=== PATIENT | male | born 1950 | race Caucasian/White ===

== ENCOUNTER 2019-05-26 12:59 | Inpatient (IN) | payer MEDICARE, MEDICAID ==
[2019-05-26] MEDS ORDERED: Vancomycin 1.5 GRAM/300 ML BAG 1.5 GM in Premix Bag 1 BAG IVPB SCH (14:15)
[2019-05-26 14:46] LABS: CKMB 2.2 ng/mL (0-6.6)
[2019-05-26] MEDS ORDERED: HYDROcodone/Acetaminophen 7.5/325 mg Tablet PO PRN (15:06)
[2019-05-26] MEDS ORDERED: Ondansetron ODT 4 MG TAB PO PRN (15:06)
[2019-05-26] MEDS ORDERED: Bisacodyl 10 MG SUPP PR PRN (15:06)
[2019-05-26] MEDS ORDERED: Ondansetron PF 4 MG/2 ML Vial IVP PRN (15:06)
[2019-05-26] MEDS ORDERED: Loperamide HCl 2 MG CAP PO PRN (15:06)
[2019-05-26] MEDS ORDERED: Benzonatate 100 MG CAP PO PRN (15:09)
[2019-05-26] MEDS ORDERED: Labetalol HCl 100 MG/20 ML VIAL SLOW IVP PRN (15:09)
[2019-05-26] MEDS ORDERED: diphenhydrAMINE 25 MG CAP PO PRN (15:09)
[2019-05-26] MEDS ORDERED: Docusate 100 MG CAP PO PRN (15:09)
[2019-05-26 15:36] LABS: #Basophils 0.1 thou/uL (0.0-0.2); #Eosinphils 0.3 thou/uL (0.0-0.7); #Lymphocytes 0.6 thou/uL (1.20-3.40); #Monocytes 1.3 thou/uL (0.11-0.59); #Neutrophils 12.1 thou/uL (1.40-6.50); %Basophils 0.8 % (0.0-1.0); %Eosinophils 1.9 % (0.0-10.0); %Lymphocytes 4.2 % (21.0-51.0); %Monocytes 9.3 % (0.0-10.0); %Neutrophils 83.9 % (42.0-75.0); Hemoglobin 12.3 g/dL (14.0-18.0); Mean Corpuscular Hemoglobin 32.5 pg (27.0-31.0); Mean Corpuscular Volume 95.6 fL (78.0-98.0); Platelet Count 472 thou/uL (130-400); RBC Distribution Width 12.8 % (11.5-14.5); Red Blood Cell (RBC) Count 3.78 mill/uL (4.70-6.10); White Blood Cell (WBC) Count 14.4 thou/uL (4.8-10.8)
[2019-05-26 15:58] LABS: Anion Gap 19 mmol/L (10-20); BUN (Urea Nitrogen) 58 mg/dL (8.4-25.7); Calc. Creatinine Clearance 0 mL/min (70-130); Calcium 8.4 mg/dL (7.8-10.44); Carbon Dioxide 19 mmol/L (23-31); Chloride 96 mmol/L (98-107); Estimated GFR-MDRD 33; Glucose 108 mg/dL (80-115); Potassium 3.7 mmol/L (3.5-5.1); Sodium 130 mmol/L (136-145)
--- NOTE | 2019-05-26 17:40 | CT ---
CT of the chest, abdomen, and pelvis: 05/26/2019 COMPARISON: None HISTORY: Flank pain, abnormal chest x-ray TECHNIQUE: Axial CT imaging at 5 mm intervals from the thoracic inlet through the pubic symphysis wit hout contrast. Coronal and sagittal reformatted imaging obtained. FINDINGS: Evaluation of the viscera, vascular structures, bowel, and evaluation for lymphadenopathy i s limited without contrast media. There is atherosclerotic calcification involving the coronary arteries, the aortic arch, the proximal great vessels, and the descending thoracic aorta. No pneumothorax is evident on either side. No left-sided pleural effusion. The left lung appears grossly unremarkable. There is a moderate-sized pleural effusion on the right which is slightly lobulated/loculated, sugges ting the possibility of complexity, which may be on the basis of infection or malignancy. There is partial consolidation/collapse of the adjacent right lower lobe. The right upper lobe appears unremar kable. A round mass is suspected with central hypodensity, possibly on the basis of necrosis, involving the posterior lateral aspect of the right middle lobe on axial image 40 measuring 2.3 cm. There is a second soft tissue mass within the right middle lobe laterally on image 39 measuring 1.9 cm. The osseous structures of the chest demonstrate no acute findings. There is a small sclerotic focus w ithin the ninth rib laterally on the right on axial image 57, which could be related to a benign bone island or a small metastatic focus. No free intraperitoneal air. Limited assessment of the liver, gallbladder, spleen, pancreas, adrenal glands, and kidneys appears grossly unremarkable. Evaluation of the upper abdomen is slightly limited secondary to motion. There is a Oconnor catheter within the urinary bladder. Limited assessment of the bowel on the basis of motion and lack of contrast media demonstrates no evidence for obstruction. There is extensive severe atherosclerotic calcification of the abdominal aorta and its b ranches throughout the abdomen/pelvis. There is a small sliding-type hiatal hernia. Osseous structures of the abdomen/pelvis demonstrate an age indeterminant, possibly acute, superior e ndplate fracture of L1 with mild loss of vertebral body height centrally. IMPRESSION: Moderate sized slightly lobulated right pleural effusion which may reflect complexity on the basis of infection or malignancy. Of note, two suspicious masses within the right middle lobe are concerning for possible malignancy. Additional findings as detailed above. Pulmonary consultation and consideration for whole body PET CT advised CODE T
--- NOTE | 2019-05-26 19:40 | ULT ---
Renal ultrasound: 05/26/2019 COMPARISON:None available HISTORY:Acute kidney insufficiency TECHNIQUE: Multiplanar grayscale sonographic imaging of the kidneys and urinary bladder obtained. FINDINGS: The right kidney radrfgod81.8 x 4.9 x 5.3 cm and demonstratesno renal mass, hydronephrosis, or renal stone. The left kidney jzsmkaml05.0 x 5.3 x 5.2 cm and demonstratesno evidence for stone, hydronephrosis, or mass lesion. The urinary bladderis not well assessed, completely decompressed and containing a Oconnor catheter. IMPRESSION:No hydronephrosis.
--- NOTE | 2019-05-26 19:56 | PDOC.HHP ---
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 I find the patient in the emergency department he is sitting up in bed, and mild acute pulmonary distress. Patient is a primary historian though he does not know his past medical history well and is unable to give many details. Patient is able to tell me that he has had a stroke in the past with weakness on the right side of the body and speech impairment, he is an active smoker, Patient denies HTN, HLD, COPD. Patient does not know what medications he takes. Patient tells me he was found on the ground today by his neighbor who called EMS. Patient states he can walk. Patient denies being admitted to the hospital in the past three months. Patient denies being in nursing facility in the past three months. Patient states that he lives at home and takes care of himself. Patient denies fever or chills, he has had a cough though he denies sputum production. Patient with right flank/ rib pain with deep inspiration. Patient denies other sick symptoms denies chest pain, palpitations, syncope, trauma to any limbs her head, or other symptoms. A CT scan of the chest, abdomen, and pelvis was performed and he is found have complex fluid collection versus mass. Pulmonology consultation has been requested for further recommendations. Hospitalist ROS - Review of Systems All other systems reviewed; all pertinent +/- noted in HPI/Subj - Medication Medications: Active Medications Generic Name Dose Route Start Last Admin Trade Name Freq PRN Reason Stop Dose Admin Albuterol/Ipratropium 3 ml 05/26/19 19:00 05/26/19 18:57 Duoneb NEB 3 ml [id number] [facility] Administration Hospitalist History - Past Medical History Source: patient Pulmonary: reports: CVA/TIA/stroke - Past Surgical History Past Surgical History: reports: Other - Social History Smoking Status: Current every day smoker Tobacco Type: chewing tobacco Alcohol: reports: Rare Drugs: reports: none Living Situation: Alone Domestic Violence: Negative Activity level: independent ambulation - Exam General Appearance: NAD, awake alert Eye: PERRL ENT: normocephalic atraumatic, moist mucosa Neck: supple, symmetric, no lymphadenopathy Heart: no murmur, no gallops, no rubs Respiratory: no rales, normal chest expansion, no tachypnea, rhonchi, wheezes Respiratory - other findings: Decreased breath sounds right lower lung Gastrointestinal: soft, non-tender, no guarding, no rigidity Extremities: no edema Skin: no lesions, no rashes Neurological: cranial nerve grossly intact, no new deficit Neurological - other findings: Right sided weakness Musculoskeletal: generalized weakness Psychiatric: oriented to person, oriented to place, flat affect Hospitalist Results - Labs Result Diagrams: 05/26/19 15:24 05/26/19 15:24 Lab results: WBC 14.4 thou/uL (4.8-10.8) H 05/26/19 15:24 Hgb 12.3 g/dL (14.0-18.0) L 05/26/19 15:24 Hct 36.1 % (42.0-52.0) L 05/26/19 15:24 MCV 95.6 fL (78.0-98.0) 05/26/19 15:24 Plt Count 472 thou/uL (130-400) H 05/26/19 15:24 Neutrophils % 83.9 % (42.0-75.0) H 05/26/19 15:24 Sodium 130 mmol/L (136-145) L 05/26/19 15:24 Potassium 3.7 mmol/L (3.5-5.1) 05/26/19 15:24 Chloride 96 mmol/L (98-107) L 05/26/19 15:24 Carbon Dioxide 19 mmol/L (23-31) L 05/26/19 15:24 BUN 58 mg/dL (8.4-25.7) H 05/26/19 15:24 Creatinine 2.01 mg/dL (0.7-1.3) H 05/26/19 15:24 Glucose 108 mg/dL (80-115) 05/26/19 15:24 Lactic Acid 1.0 mmol/L (0.5-2.2) 05/26/19 13:55 Calcium 8.4 mg/dL (7.8-10.44) 05/26/19 15:24 CK-MB (CK-2) 2.2 ng/mL (0-6.6) 05/26/19 13:55 Troponin I 0.137 ng/mL (< 0.028) H 05/26/19 13:55 - Radiology Interpretation CT scan - chest Status: image reviewed by wa Hospitalist H&P A/P - Problem (1) Empyema lung Code(s): J86.9 - PYOTHORAX WITHOUT FISTULA Status: Acute (2) Pneumonia Code(s): J18.9 - PNEUMONIA, UNSPECIFIED ORGANISM Status: Acute (3) Shortness of breath Code(s): R06.02 - SHORTNESS OF BREATH Status: Acute (4) Lung mass Code(s): R91.8 - OTHER NONSPECIFIC ABNORMAL FINDING OF LUNG FIELD Status: Acute (5) CVA, old, cognitive deficits Code(s): I69.319 - UNSP SYMPTOMS AND SIGNS W COGN FNCTNS FOL CEREBRAL INFRC Status: Acute (6) History of CVA with residual deficit Code(s): I69.30 - UNSPECIFIED SEQUELAE OF CEREBRAL INFARCTION Status: Acute (7) Sepsis Code(s): A41.9 - SEPSIS, UNSPECIFIED ORGANISM Status: Acute (8) MAIRA (acute kidney injury) Code(s): N17.9 - ACUTE KIDNEY FAILURE, UNSPECIFIED Status: Acute (9) Leucocytosis Code(s): D72.829 - ELEVATED WHITE BLOOD CELL COUNT, UNSPECIFIED Status: Acute (10) Tachypnea Code(s): R06.82 - TACHYPNEA, NOT ELSEWHERE CLASSIFIED Status: Acute - Plan Plan: Plan: Admit to the intermediate medical care unit pulmonology consultation, recommendations appreciated CT scan of the chest, abdomen, and pelvis noted with possible pulmonary lesion and possible rib lesion with possibility of empyema the patient may require chest tube versus thoracentesis pulmonary specific antibiotics breathing treatment scheduled and as needed supplemental oxygen to maintain O2 saturation greater than 88% Sepsis diagnosed on admission acute kidney injury present on admission renal ultrasound negative for obstructive process IV fluid resuscitation for MAIRA mildly elevated cardiac enzymes likely secondary to impaired renal clearance Trend troponin Q4H, add echocardiogram. Pending above workup consider cardiology consult in the AM blood pressure control blood sugar control G.I. prophylaxis
[2019-05-26] MEDS ORDERED: Azithromycin 500 MG in Sodium Chloride 0.9% 250 ML 250 ML IVPB SCH (20:00)
[2019-05-26 20:57] LABS: Troponin I 0.124 ng/mL (< 0.028)
[2019-05-26] MEDS ORDERED: cefTRIAXone\\ROCEPHIN 2 GM in Sodium Chloride 0.9% 100 ML IVPB SCH (21:00)
[2019-05-26 21:07] VITALS: BMI 20.5
[2019-05-26] MEDS: Famotidine 20 MG TAB PO SCH (23:19)
[2019-05-27] MEDS: Sodium Chloride 0.9% 1,000 ML IV SCH ×2 (00:07→16:24)
[2019-05-27 03:47] LABS: #Basophils 0.1 thou/uL (0.0-0.2); #Eosinphils 0.4 thou/uL (0.0-0.7); #Lymphocytes 0.9 thou/uL (1.20-3.40); #Monocytes 1.5 thou/uL (0.11-0.59); #Neutrophils 11.3 thou/uL (1.40-6.50); %Basophils 0.4 % (0.0-1.0); %Eosinophils 3.1 % (0.0-10.0); %Lymphocytes 6.1 % (21.0-51.0); %Monocytes 10.5 % (0.0-10.0); %Neutrophils 79.9 % (42.0-75.0); Hemoglobin 11.4 g/dL (14.0-18.0); Mean Corpuscular HGB CONC 34.1 g/dL (32.0-36.0); Mean Corpuscular Hemoglobin 32.5 pg (27.0-31.0); Mean Corpuscular Volume 95.4 fL (78.0-98.0); Mean Platelet Volume 6.8 fL (7.4-10.4); Platelet Count 456 thou/uL (130-400); RBC Distribution Width 12.8 % (11.5-14.5); Red Blood Cell (RBC) Count 3.51 mill/uL (4.70-6.10); White Blood Cell (WBC) Count 14.1 thou/uL (4.8-10.8)
[2019-05-27 04:12] LABS: Anion Gap 17 mmol/L (10-20); BUN (Urea Nitrogen) 52 mg/dL (8.4-25.7); Calc. Creatinine Clearance 47 mL/min (70-130); Calcium 8.1 mg/dL (7.8-10.44); Carbon Dioxide 17 mmol/L (23-31); Chloride 98 mmol/L (98-107); Estimated GFR-MDRD 49; Glucose 107 mg/dL (80-115); Potassium 3.3 mmol/L (3.5-5.1); Sodium 129 mmol/L (136-145)
[2019-05-27 06:14] LABS: Bilirubin Negative (Negative); Blood, Urine 3+ (Negative); Clarity Clear (Clear); Glucose, Urine (Dipstick) Normal (Negative); Leukocyte 25 Leu/uL (Negative); Nitrite Negative (Negative); Protein, Urine (Dipstick) 10 mg/dL (Neg-Trace); RBC/HPF Greater than 50 HPF (0-3); Squamous Epithelial None Seen HPF (0-3); Urobilinogen Normal mg/dL (Less than 2); WBC/HPF 21-50 HPF (0-3)
[2019-05-27 06:22] LABS: Bacteria/HPF 1+ HPF (None Seen)
[2019-05-27] MEDS: cefTRIAXone\\ROCEPHIN 2 GM in Sodium Chloride 0.9% 100 ML IVPB SCH (09:23)
[2019-05-27] MEDS: Azithromycin 500 MG in Sodium Chloride 0.9% 250 ML 250 ML IVPB SCH (09:24)
[2019-05-27 16:26] LABS: Fluid, pH - Pleural Fld 7.27 (7.60 - 7.66)
[2019-05-27 17:21] LABS: RBC Count-Automated (BF) 8048 /cumm; WBC/Nucleated-Auto (BF) 10425 uL
[2019-05-27 17:39] LABS: BF Color Yellow; Body Fluid Source Pleural Fluid; Clarity Cloudy/Turbid (Clear); Tube # EDTA
[2019-05-27 19:11] LABS: BF Segmented Neutrophils 50 %; Cell Count Non Hematic 22 %; Eosinophils 12 %; Lymphocytes 14 %
--- NOTE | 2019-05-27 20:38 | CON ---
DATE OF CONSULTATION: HISTORY OF PRESENT ILLNESS: Mr. Bedoya is a 69-year-old gentleman, who was admitted yesterday with complaints of shortness of breath and not feeling well. He has a past history of cerebrovascular accident with right-sided deficit and very significant speech deficits. He is an active smoker. He denied fever at home. As part of his workup, he had a CT scan of his chest which showed a large right pleural effusion. He underwent thoracentesis today with evacuation of 1 L of turbid fluid, pH of which was 7.27. White blood cell count is 14. He has had no fever since admission. I have been asked to see him for further treatment and recommendations in regard to right empyema. PAST MEDICAL HISTORY: 1. Status post cerebrovascular accident. 2. Tobacco abuse. PAST SURGICAL HISTORY: None. CURRENT MEDICATIONS: Noted. ALLERGIES: NONE. SOCIAL HISTORY: He smokes about a pack of cigarettes a day. He does chew tobacco. REVIEW OF SYSTEMS: Negative except as above. PHYSICAL EXAMINATION: GENERAL: This is a thin, almost debilitated appearing gentleman. He is eating dinner currently. LUNGS: Have rhonchi on the right. HEART: Rhythm is regular. ABDOMEN: Soft and nontender. EXTREMITIES: No edema. I reviewed his CT scan. IMPRESSION: Right-sided empyema for thoracoscopy and drainage. He is already on ceftriaxone and azithromycin Job ID: [id number]
[2019-05-27] MEDS: Famotidine 20 MG TAB PO SCH (21:35)
--- NOTE | 2019-05-27 21:51 | CON ---
DATE OF CONSULTATION: 05/27/2019 HISTORY OF PRESENT ILLNESS: Felix Bedoya is a 69-year-old gentleman, who has a long latency response to question. He is weak on the right side after CVA. He presented with reported respiratory distress. When I evaluated him, he had no respiratory distress at all. Chest x-ray and chest CT shows large semi- loculated right pleural effusion. I was consulted for an empyema. PAST MEDICAL HISTORY: Remarkable for CVA. SOCIAL HISTORY: He apparently still smokes. He used tobacco. Does not drink. REVIEW OF SYSTEMS: Otherwise negative. He denies being short of breath. He denies having pain. PHYSICAL EXAMINATION: VITAL SIGNS: He is afebrile. Heart rate is in the 90s, respiratory rates in the teens, oximetry is 98% on room air. HEENT: Pupils are equal. Sclerae are anicteric. NECK: Without lymphadenopathy. LUNGS: He has absent breath sounds assisted up on the right. Left lung is clear. HEART: Regular rhythm. S1, S2 normal. ABDOMEN: Soft and nontender. EXTREMITIES: Without clubbing, cyanosis, or edema. LABORATORY DATA: White count 14.1, hemoglobin 11.4, platelets 456. Sodium 129, potassium 3.3, chloride 98, bicarb 17, BUN 52, creatinine 1.42. white cells, greater than 50 red cells on urinalysis. IMPRESSION: Parapneumonic effusion, likely secondary to aspiration. I recommended thoracentesis, although I am not optimistic, I will be successful with evacuating all the fluid. I explained the risks to him, he agreed to proceed. He signed consent forms. This is a 50 minute consult, with greater than 50% of time spent on unit coordinating care excluding procedure. Job ID: [id number] [facility]
--- NOTE | 2019-05-27 23:08 | PDOC.HOSPP ---
- Subjective Encounter Date: 05/27/19 Subjective: Says he feels ok. Denies SOB, Cough. Denies significant choking with eating. Says he lives independently and is functional. Only request is food. - Objective Vital Signs & Weight: Vital Signs (12 hours) Temp Pulse Pulse Pulse Resp BP BP 05/27/19 19:42 98.5 F 05/27/19 19:00 98 16 05/27/19 15:12 98.4 F 05/27/19 14:28 94 95 132/66 138/71 05/27/19 14:23 98 16 05/27/19 11:32 89 20 05/27/19 11:10 98.4 F Pulse Ox Pulse Ox Pulse Ox 05/27/19 19:42 05/27/19 19:00 98 05/27/19 15:12 05/27/19 14:28 100 98 05/27/19 14:23 05/27/19 11:32 05/27/19 11:10 Weight Weight 151 lb 1.6 oz Most Recent Monitor Data Heart Rate from ECG 102 NIBP 137/78 NIBP BP-Mean 97 Respiration from ECG 24 SpO2 98 I&O: 05/26/19 05/27/19 05/28/19 06:59 06:59 06:59 Intake Total 240 1480 Output Total 1375 1650 Balance -1135 -170 Result Diagrams: 05/27/19 03:30 05/27/19 03:30 Hospitalist ROS - Medication Medications: Active Medications Generic Name Dose Route Start Last Admin Trade Name Freq PRN Reason Stop Dose Admin Albuterol/Ipratropium 3 ml 05/26/19 19:00 05/27/19 19:00 Duoneb NEB 3 ml [id number] STEPHANIE Administration Famotidine 20 mg 05/26/19 21:00 05/27/19 21:35 Pepcid PO 20 mg QPM STEPHANIE Administration Sodium Chloride 1,000 mls @ 70 mls/hr 05/26/19 15:15 05/27/19 16:24 Normal Saline 0.9% IV 1,000 mls .[id number] STEPHANIE Administration Azithromycin 500 mg/ Sodium 250 mls @ 250 mls/hr 05/27/19 09:00 05/27/19 09: 24 Chloride IVPB 250 mls Q24HR@0900 STEPHANIE Administration Ceftriaxone Sodium 2 gm/ 100 mls @ 200 mls/hr 05/27/19 08:00 05/27/19 09:23 Sodium Chloride IVPB 100 mls Q24HR@0800 STEPHANIE Administration Sodium Chloride 10 ml 05/27/19 09:00 05/27/19 21:35 Flush - Normal Saline IVF 10 ml Q12HR STEPHANIE Administration - Exam General Appearance: NAD, awake alert Heart: RRR, no murmur, no gallops, no rubs, normal peripheral pulses Respiratory: no wheezes, rales Respiratory - other findings: Diminished right base. Gastrointestinal: soft, non-tender, non-distended, normal bowel sounds, no palpable masses, no hepatomegaly, no splenomegaly, no bruit Extremities: no cyanosis, no clubbing, no edema Skin: normal turgor Neurological - other findings: psychomotor delay Hosp A/P (1) MAIRA (acute kidney injury) Code(s): N17.9 - ACUTE KIDNEY FAILURE, UNSPECIFIED Status: Acute (2) Empyema lung Code(s): J86.9 - PYOTHORAX WITHOUT FISTULA Status: Acute (3) History of CVA with residual deficit Code(s): I69.30 - UNSPECIFIED SEQUELAE OF CEREBRAL INFARCTION Status: Acute (4) Leucocytosis Code(s): D72.829 - ELEVATED WHITE BLOOD CELL COUNT, UNSPECIFIED Status: Acute (5) Lung mass Code(s): R91.8 - OTHER NONSPECIFIC ABNORMAL FINDING OF LUNG FIELD Status: Acute (6) Pneumonia Code(s): J18.9 - PNEUMONIA, UNSPECIFIED ORGANISM Status: Acute (7) Sepsis Code(s): A41.9 - SEPSIS, UNSPECIFIED ORGANISM Status: Acute (8) Shortness of breath Code(s): R06.02 - SHORTNESS OF BREATH Status: Acute (9) Tachypnea Code(s): R06.82 - TACHYPNEA, NOT ELSEWHERE CLASSIFIED Status: Acute - Plan Continue IV abx to cover pneumonia. Pulm consult. IV fluids. Tried to call his sister, whom he says helps him, but no answer.
[2019-05-27] MEDS: Acetaminophen 325 MG TAB PO PRN (23:43)
[2019-05-28] MEDS: Sodium Chloride 0.9% 1,000 ML IV SCH ×2 (06:20→23:14)
[2019-05-28] MEDS ORDERED: Diltiazem HCl 125 MG, Admixture Fee 1 EACH in Sodium Chloride 0.9% 100 ML IVPB SCH (08:00)
[2019-05-28] MEDS: Azithromycin 500 MG in Sodium Chloride 0.9% 250 ML 250 ML IVPB SCH (08:40)
[2019-05-28] MEDS: cefTRIAXone\\ROCEPHIN 2 GM in Sodium Chloride 0.9% 100 ML IVPB SCH (08:40)
--- NOTE | 2019-05-28 08:49 | PDOC.HOSPP ---
- Subjective Encounter Date: 05/28/19 Subjective: Says he feels fine. Denies SOB, CP. - Objective Vital Signs & Weight: Vital Signs (12 hours) Temp Pulse Ox 05/28/19 07:46 97.6 F 05/28/19 07:34 99 05/28/19 03:27 98.0 F 05/27/19 23:32 100.0 F H Weight Weight 155 lb 14.4 oz Most Recent Monitor Data Heart Rate from ECG 94 NIBP 137/73 NIBP BP-Mean 94 Respiration from ECG 21 SpO2 98 I&O: 05/27/19 05/28/19 05/29/19 06:59 06:59 06:59 Intake Total 240 2587 Output Total 1375 2350 Balance -1135 237 Result Diagrams: 05/27/19 03:30 05/27/19 03:30 Hospitalist ROS - Medication Medications: Active Medications Generic Name Dose Route Start Last Admin Trade Name Freq PRN Reason Stop Dose Admin Acetaminophen 650 mg 05/26/19 15:06 05/27/19 23:43 Tylenol PO 650 mg Q4H PRN Administration Headache/Fever/Mild Pain (1-3) Albuterol/Ipratropium 3 ml 05/26/19 19:00 05/28/19 07:39 Duoneb NEB Not Given [id number] STEPHANIE Diltiazem HCl 20 mg 05/28/19 08:00 05/28/19 08:40 Cardizem SLOW IVP 05/28/19 10:00 20 mg NOW STEPHANIE Administration Famotidine 20 mg 05/26/19 21:00 05/27/19 21:35 Pepcid PO 20 mg QPM STEPHANIE Administration Sodium Chloride 1,000 mls @ 70 mls/hr 05/26/19 15:15 05/28/19 06:20 Normal Saline 0.9% IV 1,000 mls .[id number] STEPHANIE Administration Azithromycin 500 mg/ Sodium 250 mls @ 250 mls/hr 05/27/19 09:00 05/28/19 08: 40 Chloride IVPB 250 mls Q24HR@0900 STEPHANIE Administration Ceftriaxone Sodium 2 gm/ 100 mls @ 200 mls/hr 05/27/19 08:00 05/28/19 08:40 Sodium Chloride IVPB 100 mls Q24HR@0800 STEPHANIE Administration Sodium Chloride 10 ml 05/27/19 09:00 05/27/19 21:35 Flush - Normal Saline IVF 10 ml Q12HR STEPHANIE Administration - Exam General Appearance: NAD, awake alert Heart: irregular Heart - other findings: Tachy Respiratory - other findings: Diminished R base. Rales Gastrointestinal: soft, non-tender, non-distended, normal bowel sounds, no palpable masses, no hepatomegaly, no splenomegaly, no bruit Extremities: no cyanosis, no clubbing, no edema Skin: normal turgor Neurological - other findings: Slighty cognitive delay, but generally intact. Musculoskeletal: normal tone, generalized weakness Psychiatric: flat affect Hosp A/P (1) MAIRA (acute kidney injury) Code(s): N17.9 - ACUTE KIDNEY FAILURE, UNSPECIFIED Status: Acute Plan: Repeat labs today. Continue IVF. (2) Empyema lung Code(s): J86.9 - PYOTHORAX WITHOUT FISTULA Status: Acute Plan: Tapped yesterday. Confirmed empyema. CTS consulted. Plan for thorascopic decort today. Continue abx, follow cx. (3) History of CVA with residual deficit Code(s): I69.30 - UNSPECIFIED SEQUELAE OF CEREBRAL INFARCTION Status: Acute (4) Leucocytosis Code(s): D72.829 - ELEVATED WHITE BLOOD CELL COUNT, UNSPECIFIED Status: Acute (5) Lung mass Code(s): R91.8 - OTHER NONSPECIFIC ABNORMAL FINDING OF LUNG FIELD Status: Acute (6) Pneumonia Code(s): J18.9 - PNEUMONIA, UNSPECIFIED ORGANISM Status: Acute Qualifiers: Pneumonia type: aspiration pneumonia Plan: Change from community acquired coverage to better aspiration coverage. (7) Sepsis Code(s): A41.9 - SEPSIS, UNSPECIFIED ORGANISM Status: Acute (8) Shortness of breath Code(s): R06.02 - SHORTNESS OF BREATH Status: Acute (9) Tachypnea Code(s): R06.82 - TACHYPNEA, NOT ELSEWHERE CLASSIFIED Status: Acute (10) Atrial fibrillation with rapid ventricular response Code(s): I48.91 - UNSPECIFIED ATRIAL FIBRILLATION Status: Acute Plan: New onset. BP ok. Cardizem bolus and gtt. Tolerating it and looks like it will help. Cards consult. Discussed with Dr. Vences. TSH, T4, BMP, Mg. Messaged Dr. Oneill. (11) Dysphagia as late effect of cerebrovascular accident (CVA) Code(s): I69.391 - DYSPHAGIA FOLLOWING CEREBRAL INFARCTION Status: Acute Plan: ST consulted Modified diet with pureed foods and nectar thick liquids. - Plan above
[2019-05-28 09:09] LABS: Hemoglobin 10.7 g/dL (14.0-18.0); Mean Corpuscular HGB CONC 31.5 g/dL (32.0-36.0); Mean Corpuscular Hemoglobin 30.2 pg (27.0-31.0); Mean Corpuscular Volume 96.1 fL (78.0-98.0); Mean Platelet Volume 6.8 fL (7.4-10.4); Platelet Count 470 thou/uL (130-400); RBC Distribution Width 12.9 % (11.5-14.5); Red Blood Cell (RBC) Count 3.52 mill/uL (4.70-6.10); White Blood Cell (WBC) Count 13.5 thou/uL (4.8-10.8)
--- NOTE | 2019-05-28 09:21 | PRG ---
DATE OF SERVICE: 05/28/2019 SUBJECTIVE: Felix Bedoya did well overnight. He had no new complaints. He denies pleuritic chest pain. Oximetry is 99% on room air. OBJECTIVE: VITAL SIGNS: He is afebrile. Blood pressure 137/73, heart rate 94, and respiratory rate 21. LUNGS: Remarkable for decreased breath sounds still at his right base. Left lung is clear. HEART: Regular rhythm. ABDOMEN: Soft. LABORATORY DATA: No new lab today. IMPRESSION: Parapneumonic effusion that is loculated and sterile so far. Gram stain was negative for organisms. PH was low and LDH was extremely high. He is tentatively on the schedule for thoracoscopic washout. It is unlikely that this is malignant effusion. It is most likely related to a subacute aspiration pneumonia. We will continue to follow. Job ID: [id number]
[2019-05-28 09:22] LABS: Anion Gap 14 mmol/L (10-20); BUN (Urea Nitrogen) 33 mg/dL (8.4-25.7); Calc. Creatinine Clearance 75 mL/min (70-130); Calcium 7.9 mg/dL (7.8-10.44); Carbon Dioxide 18 mmol/L (23-31); Chloride 104 mmol/L (98-107); Estimated GFR-MDRD 81; Glucose 118 mg/dL (80-115); Magnesium 1.2 mg/dL (1.6-2.6); Potassium 3.1 mmol/L (3.5-5.1); Sodium 133 mmol/L (136-145)
[2019-05-28 09:31] LABS: Band 2 % (5-11); Lymphocytes 10 % (21-51); MDiff Complete? YES; Monocytes 13 % (0-10); Neutrophil 75 % (42-75); Platelet Morphology Comment Appears Increased; Polychromasia SLIGHT = 2-3 cells (100X) (0-2/hpf)
--- NOTE | 2019-05-28 09:31 | OP ---
DATE OF PROCEDURE: 05/27/2019 PROCEDURE PERFORMED: Thoracentesis. DESCRIPTION OF PROCEDURE: The patient was placed in the sitting position with the assistance of 3 nurses. He was leaning over bedside table. His right posterior hemithorax was cleansed with chlorhexidine. 1% lidocaine in a 19-gauge needle was used to anesthetize the skin and the pleura. The fluid was localized with a small needle. An 8-[place] Agwt-W-Zuvkfmaz Catheter was then inserted into the pleural space. 1 L of turbid pleural fluid was evacuated. This was thick. It took quite some time to evacuate a L. Pleural effusion showed 10,425 white cells, 8048 red cells, white cells are mostly segmented neutrophils. There were 12% eosinophils suggesting this has been there for quite some time. PH by Respiratory therapy was 7.27, protein is 4.5, LDH is 1515, glucose 86, amylase 45. IMPRESSION: Loculated parapneumonic effusion. He would likely benefit from a thoracoscopic Y-shaped washout. It is unlikely this will resolve without that. I have consulted CT surgery. He is tentatively on schedule for tomorrow. The patient tolerated procedure well. There is no clinical indication of pneumothorax. Job ID: [id number]
[2019-05-28 09:42] LABS: Free T4 (Free Thyroxine) 1.05 ng/dL (0.70-1.48); Thyroid Stimulating Hormone 0.4782 uIU/mL (0.35-4.94)
--- NOTE | 2019-05-28 10:12 | PDOC.EVN ---
Event Note - Event Note Event Note: PT got patient up. HR jumped to 161 and SBP dropped to 70's. He was still asymptomatic. Got him supine and the BP was back to 130s. Continue with the gtt. NS bolus 500 cc. Discussed with Anesthesia. Will hold off on procedure for now. Continue to work on rate control. CC time 40 min.
[2019-05-28] MEDS: Piperacillin/Tazobactam 3.375 GM in Sodium Chloride 0.9% 100 ML IVPB SCH ×3 (11:13→20:10)
[2019-05-28] MEDS ORDERED: Bupivacaine HCl 0.5%/Epinephrine 1:200,000/PF 30 ml Vial ONE (11:29)
[2019-05-28] MEDS ORDERED: PROPOFOL 200 MG/20 ML VIAL ONE (11:29)
[2019-05-28] MEDS ORDERED: PHENYLEPHRINE-NS 100 MCG/ML 10 ML SYRINGE ONE (11:29)
[2019-05-28] MEDS ORDERED: Dexamethasone 20 MG/5 ML VIAL ONE (11:29)
[2019-05-28] MEDS ORDERED: Ondansetron PF 4 MG/2 ML Vial ONE (11:29)
[2019-05-28] MEDS ORDERED: Rocuronium Bromide 10 MG/ML (10ML VIAL) ONE (11:29)
[2019-05-28] MEDS ORDERED: Fentanyl 100 MCG/2 ML VIAL ONE (13:03)
[2019-05-28] MEDS ORDERED: Lidocaine 2% Jelly 5 ML TUBE ONE (13:03)
[2019-05-28] MEDS ORDERED: Phenylephrine 10 MG/ML VIAL ONE (13:23)
[2019-05-28] MEDS ORDERED: SUGAMMADEX SODIUM 500 MG/5 ML VIAL ONE (14:26)
[2019-05-28] MEDS ORDERED: Potassium Chloride 20 MEQ TAB PO SCH ×2 (15:00→19:15)
[2019-05-28] MEDS ORDERED: Magnesium Sulfate 3 GM in Sodium Chloride 0.9% 100 ML IVPB SCH (15:00)
[2019-05-28] MEDS ORDERED: Promethazine HCl 25 MG/ML VIAL IM PRN (15:01)
[2019-05-28] MEDS ORDERED: Ondansetron HCl/PF 4 MG/2 ML Vial IVP PRN (15:01)
[2019-05-28] MEDS ORDERED: Promethazine HCl 25 MG/ML VIAL SLOW IVP PRN (15:01)
--- NOTE | 2019-05-28 15:15 | RAD ---
RADIOGRAPH CHEST 1 VIEW: Date: 05/28/2019. Time: 2:38 p.m. HISTORY: A 69-year-old male status post right thoracoscopy. COMPARISON: Performing Artist radiograph for the chest CT of 05/26/2019. FINDINGS: There has been significant interval decrease in volume of the right pleural effusion, now very small. There is a new right basilar small pneumothorax, with subpulmonic component over the dome of the ri ght hemidiaphragm, and lateral basilar component. Estimated volume of the pneumothorax is approximat angelica 15-20%. There is small to moderate-sized consolidation at the lateral base of the right lung whi ch could be atelectasis or contusion. There is a new right-sided chest tube with distal tip overlyin g the right suprahilar region. Right upper lobe and all visualized left lung kaur, are clear. No apical component of pneumothorax visualized. IMPRESSION: 1. Significant interval decrease in volume of right pleural effusion. 2. Small right basilar pneumothorax. 3. Small to moderate-sized patchy region of atelectasis versus pulmonary contusion at the right lung base. 4. Right-sided thoracostomy tube. JN [] POS: TPC
--- NOTE | 2019-05-28 15:47 | OP ---
DATE OF PROCEDURE: 05/28/2019 PREOPERATIVE DIAGNOSIS: Right empyema. POSTOPERATIVE DIAGNOSIS: Right empyema. PROCEDURE PERFORMED: Right thoracoscopy with total pulmonary decortication. ANESTHESIA: General endotracheal. ESTIMATED BLOOD LOSS: Less than 100. DRAINS: 24-Sammarinese Noel drains x2. SPECIMENS: None. DESCRIPTION OF PROCEDURE: After appropriate consent was obtained, the patient was brought to the operating room and placed in supine position on the operating room table. Appropriate central line and monitors were placed and general endotracheal anesthesia was induced. Flexible fiberoptic bronchoscopy was performed to confirm endotracheal tube positioning. The patient was placed in the left lateral decubitus position. Joints were appropriately padded and SCDs were used. Right chest wall was prepped and draped in usual sterile fashion. Two port incisions were made, one anteriorly at the midaxillary line, one posteriorly. Thoracoscope was inserted, and the loculations were broken up. Multiple areas of fibrinous exudate were debrided. Chest was copiously irrigated until clear. After the lung was re-expanded, it expanded nicely. Two 24-Sammarinese chest tubes were placed and secured to the skin through the anterior port sites. The posterior port site was then closed in layers and Dermabond applied to the skin. The patient tolerated the procedure well, was transferred back to the [facility] in stable condition. Job ID: [id number]
--- NOTE | 2019-05-28 16:48 | EKG ---
Test Reason : Blood Pressure : / mmHG Vent. Rate : 149 BPM Atrial Rate : 150 BPM P-R Int : 000 ms QRS Dur : 090 ms QT Int : 312 ms P-R-T Axes : 000 -14 -01 degrees QTc Int : 491 ms Atrial fibrillation with rapid ventricular response with premature ventricular or aberrantly conducte d complexes Nonspecific ST abnormality Abnormal ECG When compared with ECG of 26-MAY-2019 13:17, (Unconfirmed) Atrial fibrillation has replaced Sinus rhythm Vent. rate has increased BY 57 BPM Criteria for Septal infarct are no longer Present Nonspecific T wave abnormality, worse in Inferior leads Confirmed by DR. Lena ALVAREZ ([id number]) on 05/28/2019 4:48:14 PM Referred By: FATMATA Confirmed By:DR. Lena ALVAREZ
--- NOTE | 2019-05-28 19:04 | CON ---
DATE OF CONSULTATION: 05/28/2019 REASON FOR CONSULTATION: Atrial fibrillation with RVR. HISTORY OF PRESENT ILLNESS: Mr. Bedoya is a 69-year-old white gentleman, who comes to the hospital for shortness of breath. He has a history of CVA with right-sided deficits and speech deficits at baseline. He was more short of breath, was found to have a loculated pleural effusion, which was later diagnosed as an empyema. This was confirmed with thoracentesis by Dr. Carlson. He had a consultation with Dr. Oneill, who planned to do a thoracotomy and he went into atrial fibrillation RVR, so Cardiology has been consulted for this. On my evaluation, Mr. Bedoya actually was already downstairs in the OR as he had converted into sinus rhythm. I see him after the surgery and he is doing well. He denies any more chest pain. Currently, his heart rate is in the 70s and sinus. PAST MEDICAL HISTORY: History of cerebrovascular accident with residual deficits. SURGICAL HISTORY: Recent decortication. Otherwise none. SOCIAL HISTORY: Continues to smoke. No alcohol. No drugs. REVIEW OF SYSTEMS: Negative unless in history of present illness x12. OUTPATIENT MEDICATIONS: 1. Albuterol p.r.n. 2. Aspirin 81 a day. PHYSICAL EXAMINATION: VITAL SIGNS: Temperature 98.5, pulse rate 85, respiratory rate 20, saturating 97% on 3 L nasal cannula, and blood pressure 95/68. GENERAL: Awake, alert, oriented to person and place, difficulty with time, in no distress. HEENT: Normocephalic and atraumatic. NECK: Supple. LUNGS: Absent breath sounds on the right side. Left lung is clear. CARDIOVASCULAR: S1 and S2. No S3 or S4. There is a grade 2/6 systolic murmur. ABDOMEN: Soft. Positive bowel sounds. EXTREMITIES: No edema. SKIN: Warm and dry. LABORATORY DATA: Laboratory work was reviewed. White count of 13, hemoglobin of 10, hematocrit of 33, and platelet count of 170. Chemistry with a sodium of 133, potassium is 3.1. Anion gap of 14, BUN of 33 and creatinine 0.92. Troponin was in the indeterminate range at 0.013, 0.012, and 0.014 respectively. His creatinine has gone down from 2.01 to 0.92. Free T4 and TSH are normal. UA was reviewed. EKG was reviewed. Telemetry was reviewed. ASSESSMENT: 1. Atrial fibrillation with RVR. 2. History of stroke. 3. Empyema, status post decortication. PLAN: 1. Continue supportive care for now. 2. He is currently in sinus rhythm. We will stop his diltiazem drip if he goes back into atrial fibrillation, we may consider an antiarrhythmic at that time, however, currently likely now that his lung is doing a lot better, hopefully, his atrial fibrillation will come down and will comeback. 3. CHADS-VASc score of 4 given hypertension and history of stroke, which gives him 2 points and age above 65 gives him 1 point. He would benefit from full anticoagulation. Currently, he just had a decortication. This was not to be the best time for this. If he is much better and safe from the surgical perspective, would recommend anticoagulation on discharge. Thank you for letting us to participate in the care of this patient. We will follow. Job ID: [id number]
[2019-05-28] MEDS: Melatonin 3 MG TAB PO PRN (20:09)
[2019-05-28] MEDS: Famotidine 20 MG TAB PO SCH (20:09)
[2019-05-28] MEDS: HYDROcodone/Acetaminophen 5/325 mg Tablet PO PRN (20:09)
[2019-05-29] MEDS: Piperacillin/Tazobactam 3.375 GM in Sodium Chloride 0.9% 100 ML IVPB SCH ×4 (02:46→20:15)
[2019-05-29 04:35] LABS: Anion Gap 11 mmol/L (10-20); BUN (Urea Nitrogen) 31 mg/dL (8.4-25.7); Calc. Creatinine Clearance 69 mL/min (70-130); Calcium 7.5 mg/dL (7.8-10.44); Carbon Dioxide 19 mmol/L (23-31); Chloride 108 mmol/L (98-107); Estimated GFR-MDRD 75; Glucose 139 mg/dL (80-115); Potassium 4.1 mmol/L (3.5-5.1); Sodium 134 mmol/L (136-145)
--- NOTE | 2019-05-29 08:05 | RAD ---
CHEST 1 VIEW: INDICATION: History of thoracoscopy. COMPARISON: Prior exam dated 05/28/2019. FINDINGS: Right-sided chest tube is unchanged. No pneumothorax is evident. Small pneumothorax overlying the r ight lung base has resolved. Right chest wall emphysema is similar-appearing. There is persistent r ight basilar atelectasis. The left lung is clear. Mild cardiomegaly is stable. Small right pleural effusion remains. IMPRESSION: Resolution of previously seen right basilar pneumothorax. Persistent right basilar pleural effusion. Persistent right basilar atelectasis. Right-sided thoracostomy tube is unchanged. Left lung is cl ear. Cardiomegaly is stable. POS: BH
[2019-05-29] MEDS: HYDROcodone/Acetaminophen 5/325 mg Tablet PO PRN (08:46)
--- NOTE | 2019-05-29 09:29 | PRG ---
DATE OF SERVICE: 05/29/2019 SUBJECTIVE: Felix Bedoya is in no distress. Specimens from his thoracentesis have not grown out any organisms. OBJECTIVE: LUNGS: Clear anteriorly. HEART: Regular rhythm. ABDOMEN: Soft. VITAL SIGNS: He is afebrile. IMPRESSION: Sterile parapneumonic effusion that was exudative. Once his chest tubes are out, he could probably go home and complete a course of antibiotics entirely. Job ID: [id number]
--- NOTE | 2019-05-29 13:47 | PDOC.CPN ---
- Subjective Date: 05/29/19 Time: 13:45 Interval history: No new issues. Remains in sinus. - Review of Systems General: denies: fever/chills, weight/appetite/sleep changes, night sweats, fatigue Respiratory: reports: shortness of breath, exercise intolerance. denies: cough , congestion Cardiovascular: denies: chest pain, palpitation, edema, paroxysmal nocturnal dyspnea, orthopnea Gastrointestinal: denies: nausea, vomiting, diarrhea, constipation, abd pain, GI bleeding Musculoskeletal: denies: pain, tenderness, stiffness, swelling, arthritis/ arthralgias Neurological: denies: numbness, syncope, seizure, weakness - Objective Allergies/Adverse Reactions: Allergies Allergy/AdvReac Type Severity Reaction Status Date / Time No Known Allergies Allergy Verified 05/27/19 00:39 Visit Medications: Current Medications Acetaminophen (Tylenol) 650 mg PO Q4H PRN PRN Reason: Headache/Fever/Mild Pain (1-3) Last Admin: 05/27/19 23:43 Dose: 650 mg Hydrocodone Bitart/Acetaminophen ([place] 5/325) 1 tab PO Q4H PRN PRN Reason: Moderate Pain (4-6) Last Admin: 05/29/19 08:46 Dose: 1 tab Hydrocodone Bitart/Acetaminophen ([place] 7.5/325) 1 tab PO Q4H PRN PRN Reason: Severe Pain (7-10) Albuterol/Ipratropium (Duoneb) 3 ml NEB [id number] PRN PRN Reason: SOB &/or Wheezing Albuterol/Ipratropium (Duoneb) 3 ml NEB [id number] Last Admin: 05/29/19 11:08 Dose: 3 ml Benzonatate (Tessalon) 100 mg PO Q4H PRN PRN Reason: Cough Bisacodyl (Dulcolax) 10 mg [place] DAILYPRN PRN PRN Reason: Constipation Diphenhydramine HCl (Benadryl) 25 mg PO Q6H PRN PRN Reason: Itching & Insomnia Docusate Sodium (Colace) 100 mg PO BIDPRN PRN PRN Reason: Constipation Famotidine (Pepcid) 20 mg PO BID [facility] Sodium Chloride (Normal Saline 0.9%) 1,000 mls @ 70 mls/hr IV .[id number] STEPHANIE Last Admin: 05/28/19 23:14 Dose: 1,000 mls Diltiazem HCl 125 mg/Miscellaneous Medication 1 each/ Sodium Chloride 125 mls @ 0 mls/hr IVPB INF [facility]; Protocol Last Admin: 05/28/19 20:12 Dose: 125 mls Piperacillin Sod/Tazobactam (Sod 3.375 gm/ Sodium Chloride) 100 mls @ 200 mls/ hr IVPB 0300,0900,1500,2100 [facility] Last Admin: 05/29/19 08:42 Dose: 100 mls Labetalol HCl (Normodyne) 10 mg SLOW IVP Q4H PRN PRN Reason: SBP Greater Than 180 Loperamide HCl (Imodium) 2 mg PO PRN PRN PRN Reason: Diarrhea/Loose Stools Melatonin (Melatonin) 3 mg PO HS PRN PRN Reason: Insomnia Last Admin: 05/28/19 20:09 Dose: 3 mg Ondansetron HCl (Zofran Odt) 4 mg PO Q6H PRN PRN Reason: Nausea/Vomiting Ondansetron HCl (Zofran) 4 mg IVP Q6H PRN PRN Reason: Nausea/Vomiting Sodium Chloride (Flush - Normal Saline) 10 ml IVF Q12HR [facility] Last Admin: 05/29/19 08:43 Dose: Not Given Sodium Chloride (Flush - Normal Saline) 10 ml IVF PRN PRN PRN Reason: Saline Flush Vital Signs & Weight: Vital Signs Pulse Resp Pulse Ox 05/29/19 11:08 90 20 05/29/19 07:25 98 05/29/19 07:05 77 18 Weight 155 lb 14.4 oz - Physical Exam General: appears well HEENT: mucus membranes moist Neck: supple neck Cardiac: regular rate and rhythm Lungs: decreased breath sounds Neuro: weakness Abdomen: active bowel sounds Extremities: no edema Skin: clear Musculoskeletal: no pain - Labs Result Diagrams: 05/28/19 08:40 05/29/19 03:16 Troponin/CKMB CK-MB (CK-2) 2.2 ng/mL (0-6.6) 05/26/19 13:55 Troponin I 0.140 ng/mL (< 0.028) H 05/27/19 00:38 - Telemetry Sinus rhythms and dysrhythmias: sinus rhythm - Assessment/Plan Assessment/Plan: 1. Right sided Empiema 2. Afib RVR, back in sinus. 3. Hx of CVA 4. HTN 5. CHADs VASc score of 4 (stroke, HTN, age) PLAN: - Stop diltiazem drip. Will start BB - Will be a candidate for care home anticoagulation once he is more stable. - Aspirin alone for now.
[2019-05-29] MEDS ORDERED: Aspirin 81 mg Enteric Coated Tablet PO SCH (14:00)
[2019-05-29] MEDS ORDERED: Digoxin 0.5 MG/2 ML AMP ONE (15:48)
[2019-05-29] MEDS: Sodium Chloride 0.9% 1,000 ML IV SCH (16:10)
[2019-05-29] MEDS: Amiodarone 450 MG in Dextrose 5% in Water 250 ML IVPB SCH (17:08)
[2019-05-29] MEDS: Famotidine 20 MG TAB PO SCH (20:15)
[2019-05-29] MEDS: Metoprolol Tartrate 25 MG TAB PO SCH (20:15)
[2019-05-29] MEDS: Acetaminophen 325 MG TAB PO PRN (20:16)
[2019-05-29] MEDS: Melatonin 3 MG TAB PO PRN (20:16)
--- NOTE | 2019-05-29 23:53 | PDOC.HOSPP ---
- Subjective Encounter Date: 05/29/19 Subjective: Denies complaints. Feels well. Had the thorascopy with decortication of the empyema yesterday. Tolerated well. Was back in NSR, but went back to afib with RVR today. Was seen by Cards and Amio gtt ordered, but not available yet. Denies CP or SOB. - Objective Vital Signs & Weight: Vital Signs (12 hours) Pulse Resp Pulse Ox 05/29/19 20:00 96 05/29/19 19:24 127 H 16 95 05/29/19 15:53 115 H 05/29/19 14:37 115 H 18 Weight Weight 155 lb 14.4 oz Most Recent Monitor Data Heart Rate from ECG 118 NIBP 104/81 NIBP BP-Mean 88 Respiration from ECG 23 SpO2 92 I&O: 05/28/19 05/29/19 05/30/19 06:59 06:59 06:59 Intake Total 2587 1747.8 1950 Output Total 2350 1200 500 Balance 237 547.8 1450 Result Diagrams: 05/28/19 08:40 05/29/19 03:16 Hospitalist ROS - Medication Medications: Active Medications Generic Name Dose Route Start Last Admin Trade Name Freq PRN Reason Stop Dose Admin Acetaminophen 650 mg 05/26/19 15:06 05/29/19 20:16 Tylenol PO 650 mg Q4H PRN Administration Headache/Fever/Mild Pain (1-3) Hydrocodone Bitart/Acetaminophen 1 tab 05/26/19 15:06 05/29/19 08:46 [place] 5/325 PO 1 tab Q4H PRN Administration Moderate Pain (4-6) Albuterol/Ipratropium 3 ml 05/26/19 19:00 05/29/19 19:24 Duoneb NEB 3 ml [id number] STEPAHNIE Administration Famotidine 20 mg 05/29/19 21:00 05/29/19 20:15 Pepcid PO 20 mg BID STEPHANIE Administration Sodium Chloride 1,000 mls @ 70 mls/hr 05/26/19 15:15 05/29/19 16:10 Normal Saline 0.9% IV 1,000 mls .[id number] STEPHANIE Administration Diltiazem HCl 125 mg/ 125 mls @ 0 mls/hr 05/28/19 08:00 05/28/19 20:12 Miscellaneous Medication 1 IVPB 125 mls each/ Sodium Chloride INF STEPHANIE Administration Protocol As Directed Piperacillin Sod/Tazobactam 100 mls @ 200 mls/hr 05/28/19 09:00 05/29/19 20: 15 Sod 3.375 gm/ Sodium Chloride IVPB 100 mls 0300,0900,1500,2100 STEPHANIE Administration Amiodarone HCl 450 mg/ 259 mls @ 0 mls/hr 05/29/19 15:45 05/29/19 17:08 Dextrose/Water IVPB 259 mls INF STEPHANIE Administration Protocol Per Protocol Melatonin 3 mg 05/26/19 15:09 05/29/19 20:16 Melatonin PO 3 mg HS PRN Administration Insomnia Metoprolol Tartrate 12.5 mg 05/29/19 21:00 05/29/19 20:15 Lopressor PO 12.5 mg BID STEPHANIE Administration Sodium Chloride 10 ml 05/27/19 09:00 05/29/19 20:16 Flush - Normal Saline IVF 10 ml Q12HR STEPHANIE Administration - Exam General Appearance: NAD, awake alert Heart: no murmur, no gallops, no rubs, normal peripheral pulses, irregular Heart - other findings: Tachy Respiratory: no wheezes, no rales Respiratory - other findings: Right chest tube. Gastrointestinal: soft, non-tender, non-distended, normal bowel sounds, no palpable masses, no hepatomegaly, no splenomegaly, no bruit Extremities: no cyanosis, no clubbing, no edema Skin: normal turgor Musculoskeletal: normal tone Hosp A/P (1) MAIRA (acute kidney injury) Code(s): N17.9 - ACUTE KIDNEY FAILURE, UNSPECIFIED Status: Acute (2) Empyema lung Code(s): J86.9 - PYOTHORAX WITHOUT FISTULA Status: Acute (3) History of CVA with residual deficit Code(s): I69.30 - UNSPECIFIED SEQUELAE OF CEREBRAL INFARCTION Status: Acute (4) Leucocytosis Code(s): D72.829 - ELEVATED WHITE BLOOD CELL COUNT, UNSPECIFIED Status: Acute (5) Lung mass Code(s): R91.8 - OTHER NONSPECIFIC ABNORMAL FINDING OF LUNG FIELD Status: Acute (6) Pneumonia Code(s): J18.9 - PNEUMONIA, UNSPECIFIED ORGANISM Status: Acute Qualifiers: Pneumonia type: aspiration pneumonia (7) Sepsis Code(s): A41.9 - SEPSIS, UNSPECIFIED ORGANISM Status: Acute (8) Shortness of breath Code(s): R06.02 - SHORTNESS OF BREATH Status: Acute (9) Tachypnea Code(s): R06.82 - TACHYPNEA, NOT ELSEWHERE CLASSIFIED Status: Acute (10) Atrial fibrillation with rapid ventricular response Code(s): I48.91 - UNSPECIFIED ATRIAL FIBRILLATION Status: Acute (11) Dysphagia as late effect of cerebrovascular accident (CVA) Code(s): I69.391 - DYSPHAGIA FOLLOWING CEREBRAL INFARCTION Status: Acute - Plan Presented with evidence of pneumonia/empyema. Thoracentesis with evidence of empyema, but sterile as cultures are negative. Remains on abx. had thorascopy with decortication yesterday. Continue chest tube. Today recurrent Afib with RVR off he cardizem gtt. Amio ordered, but pending. BP dropped to 60's very briefly. Dig, bolus ordered. BP better. Continue modified diet per [employer]. Renal function at baseline.
[2019-05-30] MEDS: Amiodarone 450 MG in Dextrose 5% in Water 250 ML IVPB SCH ×2 (00:27→17:44)
[2019-05-30] MEDS: HYDROcodone/Acetaminophen 5/325 mg Tablet PO PRN (02:57)
[2019-05-30] MEDS: Piperacillin/Tazobactam 3.375 GM in Sodium Chloride 0.9% 100 ML IVPB SCH ×2 (02:58→09:04)
[2019-05-30] MEDS: Sodium Chloride 0.9% 1,000 ML IV SCH ×2 (03:59→10:02)
[2019-05-30] MEDS: Famotidine 20 MG TAB PO SCH ×2 (09:03→20:33)
[2019-05-30] MEDS: Metoprolol Tartrate 25 MG TAB PO SCH ×2 (10:03→20:33)
[2019-05-30] MEDS: Aspirin 81 mg Enteric Coated Tablet PO SCH (10:04)
[2019-05-30] MEDS ORDERED: Magnesium Sulfate 4 GM in Sodium Chloride 0.9% 250 ML 250 ML IVPB SCH (15:00)
--- NOTE | 2019-05-30 15:20 | PRG ---
DATE OF SERVICE: 05/30/2019 SERVICE: Pulmonary Medicine. INTERVAL HISTORY: The patient is doing really well from respiratory standpoint. He is on room air. He is saturating wonderfully. He still has some pleuritic chest discomfort whenever he takes a deep breath. Otherwise, there is no chest pain or difficulty breathing. His appetite is returning. PHYSICAL EXAMINATION: VITAL SIGNS: Afebrile, pulse 86, blood pressure 139/82, respirations 16, saturation 100% on 2 L nasal cannula. GENERAL: The patient is awake and alert, in no apparent distress. LUNGS: Good air entry on the left. There is decreased air entry on the right. Crackles are present on the right. No prolonged expiratory phase or wheezing is otherwise appreciated. HEART: Normal rate, regular. ABDOMEN: Soft, nontender, nondistended. Bowel sounds are positive. MUSCULOSKELETAL: No cyanosis or clubbing. No pitting edema. NEUROLOGIC: Grossly nonfocal. LABORATORY DATA: Sodium 134 and uptrending, potassium 4.1, chloride 108. Creatinine 0.99 and stable. Basic metabolic profile is otherwise unremarkable. Magnesium 1.2. Urinalysis is positive for pyuria and hematuria. There is 3+ blood, but negative nitrites and minimal leukocyte esterase with only 1+ bacteria identified. Pleural fluid pH 7.27, LDH 1500, total protein 4.5. Microbiology on the pleural fluid is negative to date. ASSESSMENT: 1. Acute hypoxic respiratory failure, resolved. 2. Complicated parapneumonic effusion. 3. Community-acquired pneumonia. 4. Oropharyngeal dysphagia. DISCUSSION AND PLAN: The patient is doing great from respiratory standpoint. He has cleared his inflammatory profile. As such, he can be converted over to p.o. antibiotics. Once the chest tube is removed, he can be considered for transition home. He will need a minimal 4-week course of antibiotic. We will repeat chest x-ray in 4 weeks in the outpatient setting. Pulmonary will continue to follow. Job ID: [id number]
--- NOTE | 2019-05-30 16:17 | PDOC.CPN ---
- Subjective Date: 05/30/19 Time: 16:15 - Review of Systems General: reports: fever/chills Respiratory: reports: shortness of breath Cardiovascular: reports: chest pain Gastrointestinal: reports: nausea, abd pain Musculoskeletal: reports: pain - Objective Allergies/Adverse Reactions: Allergies Allergy/AdvReac Type Severity Reaction Status Date / Time No Known Allergies Allergy Verified 05/27/19 00:39 Visit Medications: Current Medications Acetaminophen (Tylenol) 650 mg PO Q4H PRN PRN Reason: Headache/Fever/Mild Pain (1-3) Last Admin: 05/29/19 20:16 Dose: 650 mg Hydrocodone Bitart/Acetaminophen ([place] 5/325) 1 tab PO Q4H PRN PRN Reason: Moderate Pain (4-6) Last Admin: 05/30/19 02:57 Dose: 1 tab Hydrocodone Bitart/Acetaminophen ([place] 7.5/325) 1 tab PO Q4H PRN PRN Reason: Severe Pain (7-10) Albuterol/Ipratropium (Duoneb) 3 ml NEB [id number] PRN PRN Reason: SOB &/or Wheezing Albuterol/Ipratropium (Duoneb) 3 ml NEB [id number] SCH Last Admin: 05/30/19 14:46 Dose: 3 ml Amoxicillin/Clavulanate Potassium (Augmentin) 875 mg PO Q12HR [facility] Stop: 06/19/19 21:01 Aspirin (Ecotrin) 81 mg PO DAILY [facility] Last Admin: 05/30/19 10:04 Dose: 81 mg Bisacodyl (Dulcolax) 10 mg [place] DAILYPRN PRN PRN Reason: Constipation Diphenhydramine HCl (Benadryl) 25 mg PO Q6H PRN PRN Reason: Itching & Insomnia Last Admin: 05/29/19 23:47 Dose: 25 mg Docusate Sodium (Colace) 100 mg PO BIDPRN PRN PRN Reason: Constipation Famotidine (Pepcid) 20 mg PO BID [facility] Last Admin: 05/30/19 09:03 Dose: 20 mg Sodium Chloride (Normal Saline 0.9%) 1,000 mls @ 70 mls/hr IV .[id number] [facility] Last Admin: 05/30/19 10:02 Dose: 1,000 mls Diltiazem HCl 125 mg/Miscellaneous Medication 1 each/ Sodium Chloride 125 mls @ 0 mls/hr IVPB INF [facility]; Protocol Last Admin: 05/28/19 20:12 Dose: 125 mls Amiodarone HCl 450 mg/ (Dextrose/Water) 259 mls @ 0 mls/hr IVPB INF STEPHANIE; Protocol Last Admin: 05/30/19 00:27 Dose: 259 mls Magnesium Sulfate 4 gm/ Sodium (Chloride) 258 mls @ 86 mls/hr IVPB NOW STEPHANIE Stop: 05/30/19 19:00 Labetalol HCl (Normodyne) 10 mg SLOW IVP Q4H PRN PRN Reason: SBP Greater Than 180 Loperamide HCl (Imodium) 2 mg PO PRN PRN PRN Reason: Diarrhea/Loose Stools Melatonin (Melatonin) 3 mg PO HS PRN PRN Reason: Insomnia Last Admin: 05/29/19 20:16 Dose: 3 mg Metoprolol Tartrate (Lopressor) 12.5 mg PO BID [facility] Last Admin: 05/30/19 10:03 Dose: 12.5 mg Ondansetron HCl (Zofran Odt) 4 mg PO Q6H PRN PRN Reason: Nausea/Vomiting Ondansetron HCl (Zofran) 4 mg IVP Q6H PRN PRN Reason: Nausea/Vomiting Sodium Chloride (Flush - Normal Saline) 10 ml IVF Q12HR [facility] Last Admin: 05/30/19 10:05 Dose: Not Given Sodium Chloride (Flush - Normal Saline) 10 ml IVF PRN PRN PRN Reason: Saline Flush Vital Signs & Weight: Vital Signs Temp Pulse Resp Pulse Ox 05/30/19 15:15 98.2 F 05/30/19 14:46 86 16 100 05/30/19 11:45 96.8 F L 05/30/19 11:03 78 16 100 05/30/19 08:00 94 L 05/30/19 07:45 88 20 96 05/30/19 07:37 97.2 F L Weight 165 lb 3.2 oz - Physical Exam Neck: no masses Cardiac: regular rate and rhythm Lungs: clear to auscultation (right thorax chest tube) Neuro: grossly intact Abdomen: unremarkable Extremities: no clubbing, no edema Musculoskeletal: no pain - Labs Result Diagrams: 05/28/19 08:40 05/29/19 03:16 Troponin/CKMB CK-MB (CK-2) 2.2 ng/mL (0-6.6) 05/26/19 13:55 Troponin I 0.140 ng/mL (< 0.028) H 05/27/19 00:38 - Telemetry Sinus rhythms and dysrhythmias: sinus rhythm - Assessment/Plan Assessment/Plan: 1. Right sided Empiema 2. Afib RVR, back in sinus. 3. Hx of CVA 4. HTN 5. CHADs VASc score of 4 (stroke, HTN, age) Continue present treatment.
[2019-05-30] MEDS: Melatonin 3 MG TAB PO PRN (20:34)
[2019-05-30] MEDS: Amoxicillin/Potassium Clav 875 MG TAB PO SCH (20:37)
--- NOTE | 2019-05-30 20:45 | PDOC.HOSPP ---
- Subjective Encounter Date: 05/30/19 Encounter Time: 08:00 Subjective: overnight, converted to sinus rhythm. This morning, lying comfortably in bed and complains of mild stabbing chest pain when breathing deeply. Otherwise no complaints. - Objective Vital Signs & Weight: Vital Signs (12 hours) Temp Pulse Resp Pulse Ox 05/30/19 19:39 95 20 97 05/30/19 19:31 99.9 F H 05/30/19 15:15 98.2 F 05/30/19 14:46 86 16 100 05/30/19 11:45 96.8 F L 05/30/19 11:03 78 16 100 Weight Weight 165 lb 3.2 oz Most Recent Monitor Data Heart Rate from ECG 94 NIBP 165/109 NIBP BP-Mean 127 Respiration from ECG 23 SpO2 98 I&O: 05/29/19 05/30/19 05/31/19 06:59 06:59 06:59 Intake Total 1747.8 3526 1275 Output Total 1200 1200 550 Balance 547.8 2326 725 Result Diagrams: 05/28/19 08:40 05/29/19 03:16 Hospitalist ROS - Review of Systems Constitutional: denies: fever, chills, sweats, weakness, malaise, other Respiratory: reports: cough, dry, pleuritic pain. denies: shortness of breath, hemoptysis, sputum Cardiovascular: denies: chest pain, palpitations, orthopnea, paroxysmal noc. dyspnea, edema Gastrointestinal: denies: nausea, vomiting, abdominal pain, diarrhea Genitourinary: denies: hematuria Neurological: denies: weakness, numbness, incoordination, change in speech - Medication Medications: Active Medications Generic Name Dose Route Start Last Admin Trade Name Freq PRN Reason Stop Dose Admin Acetaminophen 650 mg 05/26/19 15:06 05/29/19 20:16 Tylenol PO 650 mg Q4H PRN Administration Headache/Fever/Mild Pain (1-3) Hydrocodone Bitart/Acetaminophen 1 tab 05/26/19 15:06 05/30/19 02:57 [place] 5/325 PO 1 tab Q4H PRN Administration Moderate Pain (4-6) Hydrocodone Bitart/Acetaminophen 1 tab 05/26/19 15:06 05/30/19 20:34 [place] 7.5/325 PO 1 tab Q4H PRN Administration Severe Pain (7-10) Albuterol/Ipratropium 3 ml 05/26/19 19:00 05/30/19 19:39 Duoneb NEB 3 ml [id number] STEPHANIE Administration Amoxicillin/Clavulanate Potassium 875 mg 05/30/19 21:00 05/30/19 20:37 Augmentin PO 06/19/19 21:01 875 mg Q12HR STEPHANIE Administration Aspirin 81 mg 05/30/19 09:00 05/30/19 10:04 Ecotrin PO 81 mg DAILY STEPHANIE Administration Diphenhydramine HCl 25 mg 05/26/19 15:09 05/29/19 23:47 Benadryl PO 25 mg Q6H PRN Administration Itching & Insomnia Famotidine 20 mg 05/29/19 21:00 05/30/19 20:33 Pepcid PO 20 mg BID STEPHANIE Administration Sodium Chloride 1,000 mls @ 70 mls/hr 05/26/19 15:15 05/30/19 10:02 Normal Saline 0.9% IV 1,000 mls .[id number] STEPHANIE Administration Diltiazem HCl 125 mg/ 125 mls @ 0 mls/hr 05/28/19 08:00 05/28/19 20:12 Miscellaneous Medication 1 IVPB 125 mls each/ Sodium Chloride INF STEPHANIE Administration Protocol As Directed Amiodarone HCl 450 mg/ 259 mls @ 0 mls/hr 05/29/19 15:45 05/30/19 17:44 Dextrose/Water IVPB 259 mls INF STEPHANIE Administration Protocol Per Protocol Melatonin 3 mg 05/26/19 15:09 05/30/19 20:34 Melatonin PO 3 mg HS PRN Administration Insomnia Metoprolol Tartrate 12.5 mg 05/29/19 21:00 05/30/19 20:33 Lopressor PO 12.5 mg BID STEPHANIE Administration Sodium Chloride 10 ml 05/27/19 09:00 05/30/19 20:37 Flush - Normal Saline IVF 10 ml Q12HR STEPHANIE Administration - Exam General Appearance: NAD, awake alert Neck: no JVD Heart: RRR Heart - other findings: normal sinus on telemetry, Respiratory: no tachypnea Respiratory - other findings: reduced right breath sounds w/ mild basal insp crackles. Left CTA Gastrointestinal: soft, non-tender, non-distended, normal bowel sounds Extremities: no edema Neurological - other findings: slow speech Psychiatric: normal affect, normal behavior, A&O x 3 Hosp A/P - Plan #parapneumonic effusion #CAP -s/p decortication (05/28 -chest tube in place draining serosanguinous fluid -no growth to date (d3) -afebrile during inpatient stay - -transitioned to augmentin, will require 4 week regimen #paroxysmal atrial fibrillation with rvr -attempted to transition to cardizem PO but reverted back to afib with RVR -currently in sinus -continue amiodarone drip and oral metoprolol per cardiology #MAIRA (resolved) #disposition/PPx full code GI PPx : pepcid DVT PPx: SCDs once chest tube is out, likely transfer to telemetry
[2019-05-31] MEDS: Sodium Chloride 0.9% 1,000 ML IV SCH ×2 (02:34→11:45)
[2019-05-31 04:13] LABS: Anion Gap 12 mmol/L (10-20); BUN (Urea Nitrogen) 18 mg/dL (8.4-25.7); Calc. Creatinine Clearance 92 mL/min (70-130); Calcium 7.9 mg/dL (7.8-10.44); Carbon Dioxide 20 mmol/L (23-31); Chloride 110 mmol/L (98-107); Estimated GFR-MDRD Greater than 90; Glucose 107 mg/dL (80-115); Magnesium 1.2 mg/dL (1.6-2.6); Sodium 138 mmol/L (136-145)
[2019-05-31] MEDS: Famotidine 20 MG TAB PO SCH ×2 (09:46→21:23)
[2019-05-31] MEDS: Aspirin 81 mg Enteric Coated Tablet PO SCH (09:46)
[2019-05-31] MEDS: Metoprolol Tartrate 25 MG TAB PO SCH ×2 (09:47→21:24)
[2019-05-31] MEDS: Amoxicillin/Potassium Clav 875 MG TAB PO SCH ×2 (11:46→21:23)
[2019-05-31] MEDS ORDERED: Amlodipine 5 MG TAB PO SCH (12:30)
[2019-05-31] MEDS: Magnesium 2 GM/50 ML 2 GM in Premix Bag 1 BAG IVPB SCH ×2 (13:38→15:27)
[2019-05-31] MEDS: Amiodarone 200 MG TAB PO SCH ×2 (13:39→21:23)
--- NOTE | 2019-05-31 15:25 | PDOC.HOSPP ---
- Subjective Encounter Date: 05/31/19 Encounter Time: 09:30 Subjective: no overnight events. Chest tube removed. lying comfortably in bed and has no complaints. - Objective Vital Signs & Weight: Vital Signs (12 hours) Temp Pulse Resp BP BP Pulse Ox 05/31/19 14:18 84 18 05/31/19 13:39 93 05/31/19 13:10 164/93 H 155/105 H 05/31/19 11:09 93 19 97 05/31/19 11:08 99.0 F 05/31/19 08:00 97 05/31/19 07:48 96 18 99 05/31/19 07:22 98.4 F 05/31/19 03:48 98.6 F Weight Weight 165 lb 1.6 oz Most Recent Monitor Data Heart Rate from ECG 89 NIBP 155/105 NIBP BP-Mean 121 Respiration from ECG 23 SpO2 95 I&O: 05/30/19 05/31/19 06/01/19 06:59 06:59 06:59 Intake Total 3526 2718 Output Total 1200 1420 Balance 2326 1298 Result Diagrams: 05/28/19 08:40 05/31/19 03:33 Hospitalist ROS - Review of Systems Constitutional: denies: fever, chills, sweats, weakness, malaise, other Respiratory: denies: cough, dry, shortness of breath, hemoptysis, SOB with excertion, pleuritic pain, sputum, wheezing, other Cardiovascular: denies: chest pain, palpitations, orthopnea, paroxysmal noc. dyspnea, edema, light headedness, other Gastrointestinal: denies: nausea, vomiting, abdominal pain, diarrhea, constipation, melena, hematochezia, other Genitourinary: denies: hematuria - Medication Medications: Active Medications Generic Name Dose Route Start Last Admin Trade Name Freq PRN Reason Stop Dose Admin Acetaminophen 650 mg 05/26/19 15:06 05/29/19 20:16 Tylenol PO 650 mg Q4H PRN Administration Headache/Fever/Mild Pain (1-3) Hydrocodone Bitart/Acetaminophen 1 tab 05/26/19 15:06 05/30/19 02:57 [place] 5/325 PO 1 tab Q4H PRN Administration Moderate Pain (4-6) Hydrocodone Bitart/Acetaminophen 1 tab 05/26/19 15:06 05/30/19 20:34 [place] 7.5/325 PO 1 tab Q4H PRN Administration Severe Pain (7-10) Albuterol/Ipratropium 3 ml 05/26/19 19:00 05/31/19 14:18 Duoneb NEB 3 ml [id number] STEPHANIE Administration Amiodarone HCl 200 mg 05/31/19 15:00 05/31/19 13:39 Cordarone PO 200 mg TID STEPHANIE Administration Amoxicillin/Clavulanate Potassium 875 mg 05/30/19 21:00 05/31/19 11:46 Augmentin PO 06/19/19 21:01 875 mg Q12HR STEPHANIE Administration Aspirin 81 mg 05/30/19 09:00 05/31/19 09:46 Ecotrin PO 81 mg DAILY STEPHANIE Administration Diphenhydramine HCl 25 mg 05/26/19 15:09 05/29/19 23:47 Benadryl PO 25 mg Q6H PRN Administration Itching & Insomnia Famotidine 20 mg 05/29/19 21:00 05/31/19 09:46 Pepcid PO 20 mg BID STEPHANIE Administration Sodium Chloride 1,000 mls @ 70 mls/hr 05/26/19 15:15 05/31/19 11:45 Normal Saline 0.9% IV 1,000 mls .[id number] STEPHANIE Administration Melatonin 3 mg 05/26/19 15:09 05/30/19 20:34 Melatonin PO 3 mg HS PRN Administration Insomnia Metoprolol Tartrate 12.5 mg 05/29/19 21:00 05/31/19 09:47 Lopressor PO 12.5 mg BID STEPHANIE Administration Sodium Chloride 10 ml 05/27/19 09:00 05/31/19 11:47 Flush - Normal Saline IVF 10 ml Q12HR STEPHANIE Administration - Exam General Appearance: NAD, awake alert Eye: PERRL, anicteric sclera Neck: no JVD Heart: RRR, no murmur, no gallops, no rubs Respiratory: CTAB, no wheezes, no rales, no ronchi Respiratory - other findings: mildly reduced right breath sounds; clean dressing over right thorax Extremities: no edema Neurological: cranial nerve grossly intact Psychiatric: normal affect, normal behavior, A&O x 3 Hosp A/P - Plan #parapneumonic effusion #CAP -s/p decortication (05/28) -chest tube removed () -pleural fluid no growth to date (d4) -afebrile during inpatient stay - -transitioned to augmentin, will require 4 week regimen #paroxysmal atrial fibrillation with rvr; currently in sinus -attempted to transition to cardizem PO but reverted back to afib with RVR -transitioned to oral amiodarone per cardiolgy recs #MAIRA (resolved) #disposition/PPx full code GI PPx : pepcid DVT PPx: SCDs Transfer to telemetry floor, if remains sinus/well controlled and cleared by cardiology, may be discharged (05/31).
[2019-05-31] MEDS ORDERED: Magnesium Oxide 400 MG TAB PO SCH (15:45)
[2019-05-31] MEDS ORDERED: Magnesium Sulfate 2 GM in Sodium Chloride 0.9% 100 ML IVPB SCH (19:15)
[2019-05-31] MEDS ORDERED: Magnesium 2 GM/50 ML 2 GM in Premix Bag 1 BAG IVPB SCH (19:30)
--- NOTE | 2019-05-31 19:36 | PRG ---
DATE OF SERVICE: 05/31/2019 SERVICE: Pulmonary Medicine. INTERVAL HISTORY: The patient is doing really well from respiratory standpoint. Denies any current chest discomfort, nausea, or vomiting. He indicates that he is breathing fairly comfortably. His appetite has picked up. Otherwise, there has been no interval change to his condition. PHYSICAL EXAMINATION: VITAL SIGNS: Afebrile, pulse 90, blood pressure 137/80, respirations 16, and saturation 92% on 2 L nasal cannula. GENERAL: The patient is awake and alert, in no apparent distress. LUNGS: Good air entry bilaterally. There are crackles present. No prolonged expiratory phase or wheezing is appreciated. HEART: Normal rate. Regular. ABDOMEN: Soft. Distended. Bowel sounds, however, positive. There is no rebound or guarding. MUSCULOSKELETAL: No cyanosis or clubbing. There is no pitting in the bilateral lower extremities. NEUROLOGIC: Grossly nonfocal. LABORATORY DATA: WBC 13.5, hemoglobin 10.7, platelets 470,000. Neutrophils are 75% on top of 2% bands. Lymphocytes 10, monocytes 13. Basic metabolic profile is unremarkable. Magnesium is 1.7. There are 21 to 50 white blood cells and few greater than 50 red blood cells present. ASSESSMENT: 1. Acute hypoxic respiratory failure, resolved. 2. Complicated parapneumonic effusion, status post decortication. 3. Community-acquired pneumonia. 4. Oropharyngeal dysphagia. DISCUSSION AND PLAN: The patient is doing really well from respiratory standpoint. He is minimally volume up. As such, I will KVO his IV fluids. Tomorrow morning, we will give him a dose of Lasix. He will need a 4-week course of antibiotic. He is stable for transition out of the hospital if he has appropriate care facility to transition into. Job ID: [id number]
[2019-05-31] MEDS: Melatonin 3 MG TAB PO PRN (21:24)
[2019-06-01 04:15] LABS: #Basophils 0.1 thou/uL (0.0-0.2); #Eosinphils 0.2 thou/uL (0.0-0.7); #Monocytes 1.1 thou/uL (0.11-0.59); #Neutrophils 9.4 thou/uL (1.40-6.50); %Basophils 0.5 % (0.0-1.0); %Eosinophils 1.6 % (0.0-10.0); %Lymphocytes 8.4 % (21.0-51.0); %Monocytes 9.3 % (0.0-10.0); %Neutrophils 80.2 % (42.0-75.0); Hemoglobin 10.3 g/dL (14.0-18.0); Mean Corpuscular Hemoglobin 32.7 pg (27.0-31.0); Mean Corpuscular Volume 96.1 fL (78.0-98.0); Platelet Count 483 thou/uL (130-400); Red Blood Cell (RBC) Count 3.16 mill/uL (4.70-6.10); White Blood Cell (WBC) Count 11.7 thou/uL (4.8-10.8)
[2019-06-01 04:32] LABS: Anion Gap 13 mmol/L (10-20); BUN (Urea Nitrogen) 15 mg/dL (8.4-25.7); Calc. Creatinine Clearance 98 mL/min (70-130); Calcium 7.8 mg/dL (7.8-10.44); Carbon Dioxide 20 mmol/L (23-31); Chloride 109 mmol/L (98-107); Estimated GFR-MDRD Greater than 90; Glucose 108 mg/dL (80-115); Phosphorus 2.9 mg/dL (2.3-4.7); Potassium 3.7 mmol/L (3.5-5.1); Sodium 138 mmol/L (136-145)
[2019-06-01] MEDS: Amiodarone 200 MG TAB PO SCH ×3 (08:00→20:18)
[2019-06-01] MEDS: Metoprolol Tartrate 25 MG TAB PO SCH ×2 (08:00→20:18)
[2019-06-01] MEDS: Aspirin 81 mg Enteric Coated Tablet PO SCH (08:00)
[2019-06-01] MEDS: Amoxicillin/Potassium Clav 875 MG TAB PO SCH ×2 (08:01→20:19)
[2019-06-01] MEDS: Famotidine 20 MG TAB PO SCH ×2 (08:01→20:19)
[2019-06-01] MEDS ORDERED: Furosemide 40 MG/4 ML VIAL SLOW IVP SCH (09:00)
[2019-06-01] MEDS ORDERED: Amlodipine 5 MG TAB PO SCH (09:00)
--- NOTE | 2019-06-01 09:02 | PRG ---
DATE OF SERVICE: 06/01/2019 SUBJECTIVE: This morning, the patient is still somewhat encephalopathic. OBJECTIVE: VITAL SIGNS: Temperature 99, pulse 91, respiratory rate 18, saturations 90% on room air, blood pressure 150/80. CHEST: Minimal rhonchi. CARDIAC: Normal S1 and S2. No gallops. ABDOMEN: No mass. White count is normal. Chest tube is removed. Residual pleural reaction. IMPRESSION: Right-sided parapneumonic effusion, exudate. P.o. antibiotics, PT, supportive care, eventually home. Job ID: [id number]
--- NOTE | 2019-06-01 15:50 | PDOC.CPN ---
- Subjective Date: 06/01/19 Time: 15:48 Interval history: No new issues. Continues to have paroxysms of afib. - Review of Systems General: denies: fever/chills, weight/appetite/sleep changes, night sweats, fatigue Respiratory: reports: shortness of breath. denies: cough, congestion, exercise intolerance Cardiovascular: denies: chest pain, palpitation, edema, paroxysmal nocturnal dyspnea, orthopnea Gastrointestinal: denies: nausea, vomiting, diarrhea, constipation, abd pain, GI bleeding Musculoskeletal: denies: pain, tenderness, stiffness, swelling, arthritis/ arthralgias Neurological: denies: numbness, syncope, seizure, weakness - Objective Allergies/Adverse Reactions: Allergies Allergy/AdvReac Type Severity Reaction Status Date / Time No Known Allergies Allergy Verified 05/27/19 00:39 Visit Medications: Current Medications Acetaminophen (Tylenol) 650 mg PO Q4H PRN PRN Reason: Headache/Fever/Mild Pain (1-3) Last Admin: 05/29/19 20:16 Dose: 650 mg Hydrocodone Bitart/Acetaminophen ([place] 5/325) 1 tab PO Q4H PRN PRN Reason: Moderate Pain (4-6) Last Admin: 05/30/19 02:57 Dose: 1 tab Hydrocodone Bitart/Acetaminophen ([place] 7.5/325) 1 tab PO Q4H PRN PRN Reason: Severe Pain (7-10) Last Admin: 05/30/19 20:34 Dose: 1 tab Albuterol/Ipratropium (Duoneb) 3 ml NEB [id number] PRN PRN Reason: SOB &/or Wheezing Albuterol/Ipratropium (Duoneb) 3 ml NEB [id number] [facility] Last Admin: 06/01/19 14:37 Dose: 3 ml Amiodarone HCl (Cordarone) 200 mg PO TID [facility] Last Admin: 06/01/19 08:00 Dose: 200 mg Amlodipine Besylate (Norvasc) 5 mg PO DAILY [facility] Last Admin: 06/01/19 08:01 Dose: 5 mg Amoxicillin/Clavulanate Potassium (Augmentin) 875 mg PO Q12HR [facility] Stop: 06/19/19 21:01 Last Admin: 06/01/19 08:01 Dose: 875 mg Aspirin (Ecotrin) 81 mg PO DAILY [facility] Last Admin: 06/01/19 08:00 Dose: 81 mg Bisacodyl (Dulcolax) 10 mg [place] DAILYPRN PRN PRN Reason: Constipation Diphenhydramine HCl (Benadryl) 25 mg PO Q6H PRN PRN Reason: Itching & Insomnia Last Admin: 05/29/19 23:47 Dose: 25 mg Docusate Sodium (Colace) 100 mg PO BIDPRN PRN PRN Reason: Constipation Famotidine (Pepcid) 20 mg PO BID [facility] Last Admin: 06/01/19 08:01 Dose: 20 mg Labetalol HCl (Normodyne) 10 mg SLOW IVP Q4H PRN PRN Reason: SBP Greater Than 180 Loperamide HCl (Imodium) 2 mg PO PRN PRN PRN Reason: Diarrhea/Loose Stools Melatonin (Melatonin) 3 mg PO HS PRN PRN Reason: Insomnia Last Admin: 05/31/19 21:24 Dose: 3 mg Metoprolol Tartrate (Lopressor) 12.5 mg PO BID [facility] Last Admin: 06/01/19 08:00 Dose: 12.5 mg Ondansetron HCl (Zofran Odt) 4 mg PO Q6H PRN PRN Reason: Nausea/Vomiting Ondansetron HCl (Zofran) 4 mg IVP Q6H PRN PRN Reason: Nausea/Vomiting Sodium Chloride (Flush - Normal Saline) 10 ml IVF Q12HR [facility] Last Admin: 06/01/19 08:01 Dose: 10 ml Sodium Chloride (Flush - Normal Saline) 10 ml IVF PRN PRN PRN Reason: Saline Flush Vital Signs & Weight: Vital Signs Temp Pulse Pulse Pulse Resp BP BP 06/01/19 14:37 96 18 06/01/19 14:07 97 88 102/69 122/79 06/01/19 11:48 99.6 F 92 20 06/01/19 11:13 99 20 06/01/19 08:01 88 06/01/19 08:00 97.5 F L 92 18 06/01/19 07:53 88 18 BP Pulse Ox 06/01/19 14:37 94 L 06/01/19 14:07 06/01/19 11:48 118/75 93 L 06/01/19 11:13 94 L 06/01/19 08:01 06/01/19 08:00 170/76 H 92 L 06/01/19 07:53 94 L Weight 162 lb 5 oz - Physical Exam General: appears well HEENT: normocephaly Neck: supple neck Cardiac: regular rate and rhythm Lungs: decreased breath sounds Neuro: weakness Abdomen: active bowel sounds Extremities: no edema Skin: clear Musculoskeletal: no pain - Labs Result Diagrams: 06/01/19 03:25 06/01/19 03:25 Troponin/CKMB CK-MB (CK-2) 2.2 ng/mL (0-6.6) 05/26/19 13:55 Troponin I 0.140 ng/mL (< 0.028) H 05/27/19 00:38 - Telemetry Sinus rhythms and dysrhythmias: sinus rhythm Supraventricular conduction: atrial fibrillation - Assessment/Plan Assessment/Plan: 1. Right sided Empiema 2. Afib RVR, paroxysmal, currently in sinus. 3. Hx of CVA 4. HTN 5. CHADs VASc score of 4 (stroke, HTN, age) PLAN: - Will up titrate BB and will switch amiodarone to PO load at 400 mg BID for 7 days. - Will be a candidate for care home anticoagulation once he is more stable. - Aspirin alone for now.
--- NOTE | 2019-06-01 16:57 | EKG ---
Test Reason : Blood Pressure : / mmHG Vent. Rate : 154 BPM Atrial Rate : 091 BPM P-R Int : 000 ms QRS Dur : 080 ms QT Int : 292 ms P-R-T Axes : 000 -17 -44 degrees QTc Int : 467 ms Atrial fibrillation with rapid ventricular response Abnormal ECG When compared with ECG of 29-MAY-2019 15:08, (Unconfirmed) No significant change was found Confirmed by DR. Lena ALVAREZ ([id number]) on 06/01/2019 4:56:45 PM Referred By: STEFANIA Confirmed By:DR. Lena ALVAREZ
--- NOTE | 2019-06-01 22:17 | PDOC.HOSPP ---
- Subjective Encounter Date: 06/01/19 Encounter Time: 09:00 Subjective: no overnight events. This morning, feeling well and has no complaints including dyspnea. Pending placement - Objective Vital Signs & Weight: Vital Signs (12 hours) Temp Pulse Pulse Pulse Resp BP BP 06/01/19 19:25 93 16 06/01/19 16:04 98.9 F 94 06/01/19 14:37 96 18 06/01/19 14:07 97 88 102/69 122/79 06/01/19 11:48 99.6 F 92 20 06/01/19 11:13 99 20 BP Pulse Ox 06/01/19 19:25 94 L 06/01/19 16:04 129/76 94 L 06/01/19 14:37 94 L 06/01/19 14:07 06/01/19 11:48 118/75 93 L 06/01/19 11:13 94 L Weight Weight 162 lb 5 oz Most Recent Monitor Data Heart Rate from ECG 89 NIBP 146/86 NIBP BP-Mean 106 Respiration from ECG 23 SpO2 95 I&O: 05/31/19 06/01/19 06/02/19 06:59 06:59 06:59 Intake Total 2718 1060 600 Output Total 1420 2000 1800 Balance 1298 940 -1200 Result Diagrams: 06/01/19 03:25 06/01/19 03:25 Hospitalist ROS - Review of Systems Constitutional: denies: fever, chills, sweats, weakness, malaise, other Respiratory: denies: cough, dry, shortness of breath, hemoptysis, SOB with excertion, pleuritic pain, sputum, wheezing, other Cardiovascular: denies: chest pain, palpitations, orthopnea, paroxysmal noc. dyspnea, edema, light headedness, other Gastrointestinal: denies: nausea, vomiting, abdominal pain, diarrhea, constipation, melena, hematochezia, other Genitourinary: denies: dysuria, frequency, incontinence, hematuria, retention, other - Medication Medications: Active Medications Generic Name Dose Route Start Last Admin Trade Name Freq PRN Reason Stop Dose Admin Acetaminophen 650 mg 05/26/19 15:06 05/29/19 20:16 Tylenol PO 650 mg Q4H PRN Administration Headache/Fever/Mild Pain (1-3) Hydrocodone Bitart/Acetaminophen 1 tab 05/26/19 15:06 05/30/19 02:57 [place] 5/325 PO 1 tab Q4H PRN Administration Moderate Pain (4-6) Hydrocodone Bitart/Acetaminophen 1 tab 05/26/19 15:06 05/30/19 20:34 [place] 7.5/325 PO 1 tab Q4H PRN Administration Severe Pain (7-10) Albuterol/Ipratropium 3 ml 05/26/19 19:00 06/01/19 19:25 Duoneb NEB 3 ml [id number] STEPHANIE Administration Amiodarone HCl 400 mg 06/01/19 21:00 06/01/19 20:18 Cordarone PO 400 mg BID STEPHANIE Administration Amoxicillin/Clavulanate Potassium 875 mg 05/30/19 21:00 06/01/19 20:19 Augmentin PO 06/19/19 21:01 875 mg Q12HR STEPHANIE Administration Aspirin 81 mg 05/30/19 09:00 06/01/19 08:00 Ecotrin PO 81 mg DAILY STEPHANIE Administration Diphenhydramine HCl 25 mg 05/26/19 15:09 05/29/19 23:47 Benadryl PO 25 mg Q6H PRN Administration Itching & Insomnia Famotidine 20 mg 05/29/19 21:00 06/01/19 20:19 Pepcid PO 20 mg BID STEPHANIE Administration Melatonin 3 mg 05/26/19 15:09 05/31/19 21:24 Melatonin PO 3 mg HS PRN Administration Insomnia Metoprolol Tartrate 25 mg 06/01/19 21:00 06/01/19 20:18 Lopressor PO 25 mg BID STEPHANIE Administration Sodium Chloride 10 ml 05/27/19 09:00 06/01/19 20:31 Flush - Normal Saline IVF 10 ml Q12HR STEPHANIE Administration - Exam General Appearance: NAD, awake alert Neck: no JVD Heart: RRR, no murmur, no gallops, no rubs Respiratory: CTAB, no wheezes, no rales, no ronchi, normal chest expansion, no tachypnea Respiratory - other findings: right lung reduced breath sounds Gastrointestinal: soft, non-tender, non-distended, normal bowel sounds, no bruit Extremities: no edema Psychiatric: normal affect, normal behavior, A&O x 3 Hosp A/P - Plan #parapneumonic effusion #CAP -s/p decortication (05/28) -chest tube removed () -pleural fluid no growth to date (d4) -afebrile during inpatient stay - -transitioned to augmentin, will require 4 week regimen #paroxysmal atrial fibrillation with rvr; currently in sinus -attempted to transition to cardizem PO but reverted back to afib with RVR -transitioned to oral amiodarone per cardiolgy recs - cardiology uptitrated beta edmundo, adjusted amiodarone dose (05/31); -per cardiology, will start on anticoagulation (CHADVASC 4) once more stable #MAIRA (resolved) #disposition/PPx full code GI PPx : pepcid DVT PPx: SCDs
[2019-06-02] MEDS: Melatonin 3 MG TAB PO PRN (01:02)
[2019-06-02 04:31] LABS: Magnesium 1.4 mg/dL (1.6-2.6); Potassium 3.5 mmol/L (3.5-5.1)
--- NOTE | 2019-06-02 08:44 | PRG ---
DATE OF SERVICE: 06/02/2019 SUBJECTIVE: This morning, he is awake, alert, and responsive. Denies any pain or shortness of breath. OBJECTIVE: VITAL SIGNS: Temperature 98, pulse 84, oxygen sat 96% room air, and blood pressure 164/76. CHEST: No wheezing or crackles. CARDIAC: Normal S1 and S2. No gallops. ABDOMEN: No masses. LABORATORY DATA: Cultures negative. ASSESSMENT: Decortication, pleural effusion, and deconditioning. PLAN: Agree with placement, can be transferred out anytime to [place]. Job ID: [id number] MTDD
[2019-06-02] MEDS: Amiodarone 200 MG TAB PO SCH (08:59)
[2019-06-02] MEDS: Aspirin 81 mg Enteric Coated Tablet PO SCH (09:00)
[2019-06-02] MEDS: Famotidine 20 MG TAB PO SCH ×2 (09:00→20:23)
[2019-06-02] MEDS: Metoprolol Tartrate 25 MG TAB PO SCH ×2 (09:00→20:24)
[2019-06-02] MEDS: Amoxicillin/Potassium Clav 875 MG TAB PO SCH ×2 (09:00→20:24)
--- NOTE | 2019-06-02 15:49 | PRG ---
DATE OF SERVICE: 06/02/2019 SUBJECTIVE: Mr. Bedoya is resting comfortably. No complaints. Does not report any chest pain or pressure. OBJECTIVE: VITAL SIGNS: Blood pressure 145/75 and pulse in the 80s. LUNGS: Clear. CARDIAC: Normal S1 and normal S2. ABDOMEN: Soft and nontender. ASSESSMENT: Paroxysmal atrial fibrillation, maintaining sinus rhythm. PLAN: Continue same. Dr. Vences to return tomorrow. Job ID: [id number]
[2019-06-02] MEDS ORDERED: Potassium Chloride 20 MEQ TAB PO SCH (18:00)
[2019-06-02] MEDS ORDERED: Magnesium Oxide 400 MG TAB PO SCH (18:00)
[2019-06-02] MEDS ORDERED: Sodium Chloride 0.9% 500 ML IV SCH (18:15)
[2019-06-02 20:23] VITALS: BP 126/70; TEMP 99.6
[2019-06-02] MEDS ORDERED: Amiodarone 200 MG TAB PO SCH (21:00)
--- NOTE | 2019-06-03 13:44 | DIS ---
DATE OF ADMISSION: 05/26/2019 DATE OF DISCHARGE: 06/02/2019 HISTORY OF PRESENT ILLNESS: Mr. Bedoya is a 69-year-old gentleman with medical history of CVA with right-sided deficits and speech deficits at baseline, presented with shortness of breath. He was diagnosed with community-acquired pneumonia and parapneumonic effusion. The effusion was drained and the patient was started on antibiotics. He progressively improved. In addition to that, the patient was diagnosed with atrial fibrillation with RVR, paroxysmal. Cardiology was consulted and the patient's regimen was adjusted. He was initially on a drip and was discontinued, however, reverted into atrial fibrillation after transitioning to oral medication. Additional adjustments were made to his medications and the patient again reverted to sinus rhythm and remained in sinus rhythm despite transitioning to oral medication on the 2nd attempt. The patient was transitioned to Augmentin for a total treatment duration of 4 weeks prior to discharge. He was discharged to a rehabilitation facility. He was educated regarding the new medications including his antibiotic for a parapneumonic effusion, status post decortication and his oral amiodarone and anticoagulation for paroxysmal atrial fibrillation with RVR. He was discharged hemodynamically stable with no complaints. Job ID: [id number]
--- NOTE | 2019-06-04 08:19 | EKG ---
Test Reason : Blood Pressure : / mmHG Vent. Rate : 110 BPM Atrial Rate : 110 BPM P-R Int : 142 ms QRS Dur : 084 ms QT Int : 390 ms P-R-T Axes : 026 012 039 degrees QTc Int : 527 ms Sinus tachycardia with breif episodes of SVT Abnormal ECG ST less depressed in Anterior leads T wave inversion no longer evident in Inferior leads Confirmed by DR. Phillip WALKER ([id number]) on 06/04/2019 8:18:46 AM Referred By: ELEANOR Confirmed By:DR. Phillip WALKER
--- NOTE | 2019-06-04 09:25 | PQF ---
RUSTY DANIEL KENNON D MD [id number] CLINICAL DOCUMENTATION CLARIFICATION FORM: POST DISCHARGE Addendum to original discharge summary date: ____ Late entry note date: __ DATE: 06/04/2019 ATTN:HESHAM WALKER MD Please exercise your independent, professional judgment in responding to the clarification form. Clinical indicators are provided on the bottom of this form for your review Please check appropriate box(s) to clarify if the following diagnosis has been ruled in or ruled out: SEPSIS [ ] Ruled in diagnosis [ ] Continue to treat [ ] Resolved [ ] Ruled out diagnosis [ ] Cannot rule out diagnosis [ ] Other diagnosis [ ] Unable to determine For continuity of documentation, please document condition throughout progress notes and discharge summary. Thank You. CLINICAL INDICATORS - SIGNS / SYMPTOMS / LABS - Sepsis diagnosed on admission- H&P, 05/26, Didier Brown DO - Leukocytosis, tachypnea- H&P, 05/26, Didier Brown DO - WBC: 14.4H on 05/26, 13.5H on 05/28, 11.7H on 05/31- Laboratory report - Temp: 100.0H F on 05/27, 97.2L F on , 99.6F on 06/01-Laboratory report RISK FACTORS: - Acute kidney injury-H&P, 05/26, Didier Brown DO - Emphysema lung and pneumonia-H&P, 05/26, Didier Brown DO TREATMENTS - Azithromycin.IV- 05/26 - Rocephin.IV- 05/26 (This form is maintained as a part of the permanent medical record) [employer] [id number] [employer]. All Rights Reserved Dionte [email or web address]
--- NOTE | 2019-06-13 15:30 | EKG ---
Test Reason : Blood Pressure : / mmHG Vent. Rate : 092 BPM Atrial Rate : 092 BPM P-R Int : 142 ms QRS Dur : 084 ms QT Int : 390 ms P-R-T Axes : -12 -20 012 degrees QTc Int : 482 ms Normal sinus rhythm Septal infarct , age undetermined Abnormal ECG Confirmed by CHIKIS NICE M.D. ([id number]), editor [employer] photograph [place]ILL[place] ([id number]) on 06/13/2019 3:30:12 PM Referred By: ARLET Confirmed By:CHIKIS NICE M.D.
== END 2019-06-02 20:53 | DRG 163 ==
LOC: ERS 12:59 → ERHOLD 15:12 → IMCU/EMU 20:55 → 2NO 05-31 16:09
PROVIDERS: ADMIT Internal Medicine; ATTEND Internal Medicine
PROC: 0W993ZZ Drainage of Right Pleural Cavity, Percutaneous Approach (ICD-10-PCS; principal; 2019-05-27)
PROC: 0BNK4ZZ Release Right Lung, Percutaneous Endoscopic Approach (ICD-10-PCS; 2019-05-28)
DX: J86.9 Pyothorax without fistula (principal); J69.0 Pneumonitis due to inhalation of food and vomit; J96.01 Acute respiratory failure with hypoxia; N17.9 Acute kidney failure, unspecified; I69.351 Hemiplegia and hemiparesis following cerebral infarction affecting right dominant side; J90 Pleural effusion, not elsewhere classified; E78.5 Hyperlipidemia, unspecified; I10 Essential (primary) hypertension; R91.8 Other nonspecific abnormal finding of lung field; I48.0 Paroxysmal atrial fibrillation; R13.12 Dysphagia, oropharyngeal phase; R13.10 Dysphagia, unspecified; F17.210 Nicotine dependence, cigarettes, uncomplicated; Z90.49 Acquired absence of other specified parts of digestive tract; I69.391 Dysphagia following cerebral infarction; Z79.01 Long term (current) use of anticoagulants
CPT/HCPCS: 36415; 71045; 71250; 74177; 76770; 80048; 81001; 82150; 82553; 82945; 83605; 83615; 83735; 84100; 84132; 84157; 84439; 84443; 84484; 85025; 85060; 87070; 87086; 87205; 88112; 88305; 89051; 93005; 93010; 93306; 94640; 96365; 96366; J0282; J0456; J0670; J0696; J1100; J1160; J1940; J2370; J2405; J2543; J2704; J3010; J3475; J3490; J7050; J7070; J7620; Q0163